=== PATIENT | female | born 1955 | race Caucasian/White ===

== ENCOUNTER 2018-05-23 18:45 | Emergency (ER) | payer MEDICAID ==
[~2018-05-23] VITALS: Ht 172.7 cm; Wt 109.1 kg
[~2018-05-23 18:45] MED LIST: ALB0.5UD IH; ALBU18HF2 IH; BUPR150T6 PO; CLON-529 PO; GLIP5TAB26 PO; HYDR-3965 PO; LORA1TAB PO; METF500T7 PO; NITR0.4T51 SL; OMEP40CA37 PO; PRAV40TA PO; SYN0.112T PO; ZIPR20CA2 PO; ZOLP10TA5 PO
[2018-05-23 21:43] LABS: BASOPHILS # (AUTO) 0.1 X10'3 (0-0.2); BASOPHILS % (AUTO) 1.3 % (0-1); EOSINOPHILS # (AUTO) 0.7 X10'3 (0-0.9); EOSINOPHILS % (AUTO) 6.3 % (0-6); HEMATOCRIT 32.7 % (35.0-45.0); HEMOGLOBIN 10.2 g/dl (12.0-16.0); LYMPHOCYTES # (AUTO) 2.9 X10'3 (1.1-4.8); LYMPHOCYTES % (AUTO) 27.1 % (21-51); MEAN CORPUSCULAR HGB CONC 31.3 g/dL (33.0-36.5); MEAN CORPUSCULAR VOLUME 73.6 FL (78-98); MONOCYTES # (AUTO) 1.1 X10'3 (0-0.9); MONOCYTES % (AUTO) 10.4 % (2-12); NEUTROPHILS # (AUTO) 5.9 X10'3 (1.8-7.7); NEUTROPHILS % (AUTO) 54.9 % (42-75); PLATELET COUNT 421 X10'3 (140-440); RED BLOOD COUNT 4.45 X10'6 (4.20-5.60); RED CELL DISTRIBUTION WIDTH 18.3 % (11.5-14.5); WHITE BLOOD COUNT 10.8 X10'3 (4.5-11.0)
[2018-05-23 21:59] LABS: ALANINE AMINOTRANSFERASE 20 U/L (12-78); ALKALINE PHOSPHATASE 83 IU/L (46-116); ANION GAP 9 (8-16); ASPARTATE AMINO TRANSFERASE 15 U/L (10-37); BILIRUBIN,TOTAL 0.2 MG/DL (0.1-1.0); BLOOD UREA NITROGEN 20 MG/DL (7-18); BUN/CREATININE RATIO 17.9 (6.6-38.0); CHLORIDE 100 MMOL/L (99-107); CREATININE 1.12 MG/DL (0.40-0.90); GLUCOSE 206 MG/DL (70-104); POTASSIUM 3.9 MMOL/L (3.5-5.1); SODIUM 136 MMOL/L (135-145); TOTAL CARBON DIOXIDE 26.9 MMOL/L (24-32); TOTAL PROTEIN 8.1 G/DL (6.4-8.2); eGFR 49 ML/MIN
[2018-05-23 22:08] LABS: ETHANOL < 0.010 GM/DL (0.0-0.010)
[2018-05-23 22:15] LABS: CLARITY,URINE CLEAR (Clear); COLOR,URINE YELLOW (Yellow); GLUCOSE, URINE >=1000 mg/dl (Neg); KETONES,URINE NEGATIVE (Neg); LEUKOCYTE ESTERASE ,URINE NEGATIVE (Neg); NITRITES, URINE NEGATIVE (Neg); OCCULT BLOOD,URINE NEGATIVE (Neg); PH,URINE 5.5 (4.8-8.0); PROTEIN,URINE NEGATIVE (Neg); UA COLLECTION TYPE CLN CATCH MIDSTREAM; URINE HCG NEGATIVE (NEG); UROBILINOGEN,URINE 0.2 E.U/dL (0.2-1.0)
[2018-05-23 22:23] LABS: RBC,URINE 0-2 /HPF (0-2)
[2018-05-23 22:24] LABS: BACTERIA,URINE FEW /HPF (Neg); SQUAMOUS EPITHELIAL CELL,UR FEW /LPF (FEW); WBC CLUMPS,URINE FEW /HPF (NEGATIVE)
[2018-05-23 22:25] LABS: YEAST FEW /HPF (NEGATIVE)
[2018-05-23 22:27] LABS: URINE AMPHETAMINE SCREEN NEGATIVE (Neg); URINE BARBITUATE SCREEN NEGATIVE (Neg); URINE BENZODIAZEPINES SCREEN NEGATIVE (Neg); URINE CANNABINOID SCREEN NEGATIVE (Neg); URINE COCAINE SCREEN NEGATIVE (Neg); URINE METHADONE SCREEN NEGATIVE (Neg); URINE OPIATE SCREEN POSITIVE (Neg); URINE PHENCYCLIDINE SCREEN NEGATIVE (Neg)
--- NOTE | 2018-05-24 01:03 | NUR ---
PT SITTING ON THE SIDE OF BED. ASKED PT IF SHE NEEDED ANYTHING.NO NEEDS AT THIS TIME.
--- NOTE | 2018-05-24 01:57 | NUR ---
tele psych called for consult. pt given blanket
[2018-05-24] MEDS ORDERED: EMPA10TA PO (04:04)
[2018-05-24] MEDS ORDERED: CLON-529 PO (04:04)
[2018-05-24] MEDS ORDERED: LISI-642 PO (04:08)
[2018-05-24] MEDS ORDERED: OLAN5TAB3 PO (04:08)
[2018-05-24] MEDS ORDERED: LORA-512 PO (04:15)
[2018-05-24] MEDS ORDERED: CARV-50 (04:30)
[2018-05-24 05:24] VITALS: BP_DIAS 46
--- NOTE | 2018-05-24 06:01 | NUR ---
SOC MD CALLING FOR REPORT. SHE WILL CALL PT SHORTLY
--- NOTE | 2018-05-24 06:35 | NUR ---
Patient just finished Telepsych consult and moved from Bed 7 to Bed 20 in ED Overflow.
[2018-05-24] MEDS ORDERED: LORazepam 1 MG tablet PO PRN (08:20)
[2018-05-24] MEDS ORDERED: nitroGLYCERIN 0.4mg SUBLingual tab SL PRN (08:20)
[2018-05-24] MEDS ORDERED: HYDROcodone/acetaminophen 5mg/325mg tablet PO PRN (08:20)
[2018-05-24] MEDS ORDERED: buPROPion 75mg tablet PO SCH (08:23)
[2018-05-24] MEDS ORDERED: cloNIDine 0.1 mg tablet PO SCH (08:24)
[2018-05-24] MEDS ORDERED: carVEDilol 12.5mg tablet PO SCH (08:24)
[2018-05-24] MEDS ORDERED: lisinopril 10 MG tablet PO SCH (08:29)
[2018-05-24] MEDS ORDERED: levoTHYROXINE 112mcg tablet PO SCH (08:29)
[2018-05-24] MEDS ORDERED: pantoprazole 40mg Tablet.DR PO SCH (08:33)
[2018-05-24] MEDS: albuterol 2.5 MG/3 ML nebule NEB SCH ×2 (08:35→15:54)
--- NOTE | 2018-05-24 08:40 | NUR ---
Patient awake, alert and no apparent distress. Patient's skin is warm and dry, color pink. Patient c/o feeling suicidal for a long time. Patient does not have a plan. Patient has a lot of stressors in her life. Patient's son is in pallative care and dying from heart disease. Patient's 2 best friends have this year and patient feels overwhelmed with sadness. Patient states she has always been a cutter to relieve stress. Patient has depressed affect. Patient is pending [facility] evaluation. Continue to monitor.
[2018-05-24] MEDS ORDERED: loratadine 10mg tablet PO SCH (09:20)
[2018-05-24 10:36] VITALS: BP_SYST 106
--- NOTE | 2018-05-24 11:26 | NUR ---
Patient placed on a 5150 by LISA Alvares. Continue to monitor.
[2018-05-24] MEDS ORDERED: EMPAGLIFLOZIN 10 MG PO SCH (12:00)
--- NOTE | 2018-05-24 13:18 | NUR ---
RELIEVING RN FOR LUNCH, PT IS SLEEPING, RESP EVEN AND UNLABORED
--- NOTE | 2018-05-24 14:46 | NUR ---
Patient sleeping on right side. No distress observed. Patient's daughter visited earlier for a short time. Continue to monitor.
--- NOTE | 2018-05-24 16:35 | NUR ---
Patient ambulatory to BR, steady gait with [facility] walker. Patient states she lives in a very small apartment and doesn't walk very much. Patient does not use a walker at home. Continue to monitor.
--- NOTE | 2018-05-24 17:32 | NUR ---
Patient is pending d/c and transfer to [facility], [facility]. Per director diversity Leah, pt's room is still dirty so possibly transfer after change of shift. Continue to monitor.
--- NOTE | 2018-05-24 18:35 | NUR ---
Recieved pt report from Medina Mari. Pt is resting comfortably, just recieved and is eating dinner.
--- NOTE | 2018-05-24 19:07 | NUR ---
Patient departed at 1902 with aide Rubin and security. All belongings whent with pt to [facility]. She was transported in a wheelchair. Pt was comfortable and calm at time of departure.
[2018-05-24] MEDS ORDERED: OLANZAPINE 5 MG TABLET PO SCH (21:00)
[2018-05-24] MEDS ORDERED: pravastatin 40mg tablet PO SCH (21:00)
[2018-05-24] MEDS ORDERED: ziprasidone 20mg capsule PO SCH (21:00)
== END 2018-05-24 19:02 | disposition home or self-care (01) ==
LOC: ER 18:46
DX: F41.9 Anxiety disorder, unspecified (principal); F32.9 Major depressive disorder, single episode, unspecified; Z60.2 Problems related to living alone; Z88.5 Allergy status to narcotic agent; Z79.899 Other long term (current) drug therapy
CPT/HCPCS: 36415; 80053; 80305; 80320; 81001; 81025; 84443; 85025; 94640; 94760; 99285

== ENCOUNTER 2018-05-24 16:19 | Inpatient (IN) | payer MEDICAID ==
[~2018-05-24] VITALS: Ht 172.7 cm; Wt 104.2 kg
[~2018-05-24 16:19] MED LIST changes: +CARV-50; +EMPA10TA PO; +LISI-642 PO; +LORA-512 PO; +OLAN5TAB3 PO
[2018-05-24] MEDS ORDERED: mag hydrox/Alum hydrox/simeth 30ml oral suspension PO PRN (17:15)
[2018-05-24] MEDS ORDERED: magnesium hydroxide 30ml (MOM) UD suspension PO PRN (17:15)
[2018-05-24] MEDS ORDERED: tuberculin, purif. prot. deriv. 5 units/0.1ml ID ONE (17:15)
[2018-05-24] MEDS ORDERED: loperamide 2mg capsule PO PRN (17:15)
[2018-05-24 20:00] VITALS: BP 117/55
[2018-05-24] MEDS ORDERED: nitroGLYCERIN 0.4mg SUBLingual tab SL PRN (20:55)
[2018-05-24] MEDS ORDERED: OLANZAPINE 5 MG TABLET PO SCH (21:00)
[2018-05-24] MEDS ORDERED: albuterol 2.5 MG/3 ML nebule NEB PRN (21:00)
[2018-05-24] MEDS ORDERED: dextrose ORAL solution 15 GM/59 ML bottle PO PRN ×2 (22:30)
[2018-05-24] MEDS ORDERED: glucagon, human recombinant 1mg kit SUBCUT PRN (22:30)
[2018-05-24] MEDS ORDERED: dextrose 50%-water 50ml dispensing syringe IV PRN ×2 (22:30)
[2018-05-24] MEDS ORDERED: MESSAGE TO PHARMACY PO ONE (22:30)
[2018-05-24] MEDS: insulin glargine (Lantus) pen - multi-dose SQ SCH (23:25)
[2018-05-24] MEDS: ziprasidone 20mg capsule PO SCH (23:49)
[2018-05-24] MEDS: LORazepam 1 MG tablet PO PRN (23:50)
[2018-05-24] MEDS: OLANZAPINE 5 MG TABLET PO SCH (23:52)
--- NOTE | 2018-05-25 05:01 | NUR ---
NURSING PROGRESS NOTE Legal hold: 5150 for DTS. Report received from: Francis kowalski. 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 Client has a hx of self injurious behavior (i.e. "I was a cutter when I was a teenager.") Client reported SI with the intention of "running in front of a car". She reported one prior SA, stating, "I took a whole bottle of Seroquel, and God saved my life". This attempt did not result in hospitalization. Client was adopted as an . Client arrived on the unit at 19:00 from the ED, via wheelchair accompanied by Rubin Pizano. She is cooperative and pleasant. Client requests a walker. Her gait has not been assessed at this time. She appears older than stated age, is disheveled, and has poor personal hygiene. Medical hx is significant for: DM II, HTN, hyperlipidemia, hypothyroidism, COPD, and GERD. S/I, H/I: Reports SI. A/VH: Denies. Sleep: Reports insomnia. ADL's: Independent Group attendance: N/A. Were meds taken: Med compliant. Any med S/E: None noted or reported. MENTAL HEALTH ASSESSMENT: Appearance: Messy hair, disheveled, poor hygiene. Eye contact: Good. Behavior: Cooperative. Speech: Clear. Mood: Depressed. Affect: Blunted. Thought process: Linear. Cognition: A&Ox4. Insight: Fair. Judgment: Poor. INTERVENTIONS: PRN's used: N/A. Therapeutic interventions: 1:1 assessment, positive feedback medication administration/monitoring/education, Q 15 min safety checks. Restraints/seclusion/emergency medication: N/A Justification of Continued Inpatient Treatment: Client is depressed and reports impulsive self injurious behaviors. She has been endorsing SI at this time.
[2018-05-25 07:41] VITALS: BP 106/40
[2018-05-25] MEDS: lisinopril 5mg tablet PO SCH (07:51)
[2018-05-25] MEDS: carVEDilol 12.5mg tablet PO SCH ×2 (07:51→20:39)
[2018-05-25] MEDS: levoTHYROXINE 112mcg tablet PO SCH (07:52)
[2018-05-25] MEDS: pantoprazole 40mg Tablet.DR PO SCH (07:52)
[2018-05-25] MEDS: loratadine 10mg tablet PO SCH (07:52)
[2018-05-25] MEDS: pravastatin 40mg tablet PO SCH (07:52)
[2018-05-25] MEDS: buPROPion SR 150mg tablet PO SCH (07:52)
[2018-05-25] MEDS ORDERED: glipizide 5mg tablet PO SCH (08:00)
[2018-05-25] MEDS: cloNIDine 0.1 mg tablet PO SCH ×2 (08:00→20:39)
--- NOTE | 2018-05-25 12:03 | NUR ---
"1:1 DISCHARGE PLANNING SW emailed Tiffany Hughes with the following for Journey Home Program: Good Afternoon Mama July, I am hoping we can connect with each other for Journey Home ticket and possible substance abuse treatment program in [place] for patient whom has been at our facility for a few days. From what I understand, he came to [place] to get clean and sober, then began using methamphetamine. He presents as very depressed and desires to return to the area where he as family and friend supports. Can you help us connect this gentleman to return home? Thank you, LIZZETTE Beckford | [employer] Visiting Teacher II LIZZETTE Beckford Addendum: 05/28/18 at 0709 by Shanelle Osman AMENDED NOTE NOTE PLACED IN WRONG CHART. DISREGARD THIS NOTE. LIZZETTE Beckford"
--- NOTE | 2018-05-25 16:47 | NUR ---
NURSING PROGRESS NOTE Legal hold: 5150 for DTS. Report received from HELLEN Velasquez with use of SBAR. Why they are here: Client presented to ED reporting wanting to "punch herself in the head". There is HX of self injurious behavior (i.e. "I was a cutter when I was a teenager.") Patient reported SI with the intention of "running in front of a car". This shift: Patient is observed resting in her room at shift change, no apparent distress observed. She awakens easily and takes her morning medications. She states that she is feeling a little nauseous this morning but gets up and joins others in the group room for breakfast. She eats her meals without any issue. She attends groups and in between activities she rests in her bed. She tells this RN that she has been having difficulty sleeping for the past 3 months. She states that this is probably why she does not feel well. She does not report S/I but does states that she thinks about cutting all the time. ASSESSMENT: S/I, H/I: none reported, reports wanting to cut herself A/VH: Denies. Sleep: slept 5.25 hrs NOC and rested during the night ADL's: Independent Group attendance: yes Were meds taken: yes Any med S/E: None noted or reported. MENTAL HEALTH ASSESSMENT: Appearance: Messy hair, disheveled, poor hygiene. Eye contact: direct Behavior: Cooperative, calm, tired Speech: Clear, soft tone, normal rate/rhythm Mood: Depressed Affect: restricted with soft occasional smiles Thought process: Linear. Cognition: A&Ox4. Insight: Fair. Judgment: Poor. INTERVENTIONS: PRN's used: none Therapeutic interventions: 1:1 therapeutic assessment, maintained safe therapeutic milieu, provided active listening with positive feedback, provided medication education as needed, monitored for change in behavior and needed intervention. Q 15 min safety checks. Restraints/seclusion/emergency medication: N/A Justification of Continued Inpatient Treatment: Client is depressed and reports impulsive self injurious behaviors. She has been endorsing SI at this time.Continued therapeutic support and medication management needed to provide stabilization, prevent decompensation, and decrease risk to patient and readmittance.
[2018-05-25 19:39] VITALS: BP 115/47
[2018-05-25] MEDS: ziprasidone 20mg capsule PO SCH (20:38)
[2018-05-25] MEDS: insulin glargine (Lantus) pen - multi-dose SQ SCH ×2 (20:47→21:00)
[2018-05-25] MEDS: LORazepam 1 MG tablet PO PRN (21:06)
[2018-05-25] MEDS: OLANZAPINE 5 MG TABLET PO SCH (21:06)
--- NOTE | 2018-05-26 01:38 | NUR ---
NURSING PROGRESS NOTE Legal hold: 5150 for DTS. Report received from PHILIP Timmons with use of SBAR. Why they are here: Client presented to ED reporting wanting to "punch herself in the head". There is HX of self injurious behavior (i.e. "I was a cutter when I was a teenager.") Patient reported SI with the intention of "running in front of a car". This shift: Patient was resting in bed at shift change, pt aroused easily. Pt is pleasant and reports she had a good day. Pt stated she attended group. Pt stated she was provided a FWW. She is able to walk from her room to the group room, across the [place], for meals and group therapy. P.T eval is still pending. Pt reports she her anxiety a 10/23 and depression 09/21. Pt denies SI, but reports she still thinks about cutting herself. Pt has a history of cutting, but nothing recent. Pt denies A/VH, states she is happy she is here. Blood glucose was 201 at 2130. Pt received 12 units of routine Lantus. Pt was administered her PPD this shift with no adverse side effects noted. ASSESSMENT: S/I, H/I: SI pt denies, reports wanting to cut herself. [place] H/I A/VH: None reported or observed Sleep: See sleep assessment notation ADL's: Independent, needs prompting for hygiene Group attendance: shift boss, no group Were meds taken: Pt is medication compliant Any med S/E: None reported or observed MENTAL HEALTH ASSESSMENT: Appearance: Messy hair, disheveled, poor hygiene. Eye contact: Direct Behavior: Cooperative, calm, fatigued Speech: Clear, soft tone, normal rate/rhythm Mood: Depressed Affect: Restricted with soft occasional smiles Thought process: Linear Cognition: A&Ox4. Insight: Fair. Judgment: Poor. INTERVENTIONS: PRN's used: Ativan Therapeutic interventions: 1:1 therapeutic assessment, maintained safe therapeutic milieu, provided active listening with positive feedback, provided medication education as needed, monitored for change in behavior and needed intervention. Q 15 min safety checks. Restraints/seclusion/emergency medication: N/A Justification of Continued Inpatient Treatment: Client is depressed and reports impulsive self injurious behaviors. She has been endorsing SI at this time.Continued therapeutic support and medication management needed to provide stabilization, prevent decompensation, and decrease risk to patient and readmittance.
[2018-05-26] MEDS: pantoprazole 40mg Tablet.DR PO SCH (07:36)
[2018-05-26 07:37] VITALS: BP 101/45
[2018-05-26] MEDS: cloNIDine 0.1 mg tablet PO SCH ×2 (08:00→20:00)
[2018-05-26 08:18] VITALS: BP 101/62
[2018-05-26] MEDS: carVEDilol 12.5mg tablet PO SCH ×2 (08:22→20:00)
[2018-05-26] MEDS: lisinopril 5mg tablet PO SCH (08:22)
[2018-05-26] MEDS: loratadine 10mg tablet PO SCH (08:22)
[2018-05-26] MEDS: levoTHYROXINE 112mcg tablet PO SCH (08:22)
[2018-05-26] MEDS: pravastatin 40mg tablet PO SCH (08:22)
[2018-05-26] MEDS: buPROPion SR 150mg tablet PO SCH (08:22)
[2018-05-26] MEDS: insulin Lispro (HumaLOG) vial - multi-dose SQ SCH ×3 (08:49→18:20)
[2018-05-26 09:00] LABS: HEMOGLOBIN A1C 8.7 % (4.5-6.2)
[2018-05-26 09:01] LABS: CHOL/HDL RATIO 5.3 (0.00-4.99); CHOLESTEROL 184 MG/DL (0-200); HDL CHOLESTEROL 35 MG/DL (35-60); LDL CHOLESTEROL 107 MG/DL (50-100); TRIGLYCERIDES 308 MG/DL (20-135)
--- NOTE | 2018-05-26 11:49 | NUR ---
NURSING PROGRESS NOTE Legal hold: 5150 for DTS. Report received from PHILIP Salas with use of SBAR. Why they are here: Client presented to ED reporting wanting to "punch herself in the head". There is HX of self injurious behavior (i.e. "I was a cutter when I was a teenager.") Patient reported SI with the intention of "running in front of a car". This shift: Pt was sitting on the edge of her bed at change of shift. Compliant with medication administration. States she is depressed and anxious, but denies SI. Denies A/VH. She reports pain 6/10 in her back and shoulders, but refuses pain medication. Reports rest and relaxation help pain. Pt attended AM group. 0731 blood sugar 187, pt started on level II of hyperglycemic protocol. Pt's BP 101/62, Catapress held, Rolo Mathur notified. ASSESSMENT: S/I, H/I: Denies A/VH: Denies. Sleep: Napped ADL's: Independent Group attendance: AM group Were meds taken: yes Any med S/E: None noted or reported. MENTAL HEALTH ASSESSMENT: Appearance: Disheveled Eye contact: Direct Behavior: Pleasant, cooperative Speech: Normal rate/rhythm Mood: Depressed Affect: Constricted Thought process: Linear and connected Cognition: A&Ox4. Insight: Fair. Judgment: Fair INTERVENTIONS: PRN's used: None Therapeutic interventions: 1:1 therapeutic assessment, maintained safe therapeutic milieu, provided active listening with positive feedback, provided medication education and monitoring, assessed for changes in behavior and needed interventions. Q 15 min safety checks, therapeutic milieu Restraints/seclusion/emergency medication: N/A Justification of Continued Inpatient Treatment: Continued therapeutic support and medication management needed to provide stabilization, prevent decompensation, and decrease risk to patient and readmittance.
[2018-05-26] MEDS: nystatin 15 GM powder TP SCH ×2 (12:54→20:48)
--- NOTE | 2018-05-26 12:58 | NUR ---
Amend: Pt reluctantly allowed assessment of area under pannus. Area is not red at this time, Nystatin held.
[2018-05-26] MEDS: LORazepam 0.5 MG tablet PO PRN ×2 (13:30→21:39)
[2018-05-26] MEDS: acetaminophen 325mg tablet PO PRN (16:44)
[2018-05-26 20:00] VITALS: BP 95/58
[2018-05-26] MEDS: OLANZAPINE 5 MG TABLET PO SCH (20:43)
[2018-05-26] MEDS: insulin glargine (Lantus) pen - multi-dose SQ SCH (20:46)
[2018-05-26] MEDS: ziprasidone 20mg capsule PO SCH (21:40)
[2018-05-26] MEDS ORDERED: LORazepam 0.5 MG tablet PO ONE (23:50)
--- NOTE | 2018-05-27 01:27 | NUR ---
NURSING PROGRESS NOTE Legal hold: 5150 for DTS. Report received from HPILIP Hdez with use of SBAR. Why they are here: Client presented to ED reporting wanting to "punch herself in the head". There is HX of self injurious behavior (i.e. "I was a cutter when I was a teenager.") Patient reported SI with the intention of "running in front of a car". This shift: Patient was lying in bed at shift change. No apparent distress observed. Pt was compliant with medication administration. Her Coreg and Clonidine were held due to SBP below parameters. Pt reports her anxiety and depression to be 9/10. Pt does not appear to be anxious, she smiles and converses appropriately. Her affect is not congruent with her mood. Pt denies SI, A/VH, she reports passive thoughts of cutting herself, but these thoughts have greatly diminished. Pt feels her depression is not being addressed and asked what medications she was on. Pt was upset because her Ativan had been reduced to 0.5 mg BID, stated she probably wouldn't be able to sleep know. Pt HS blood glucose was 151. Pt received 12 units scheduled Lantus. Pt was offered to take a shower, but pt refused and indicated she would take one in the morning. It was explained the risks and benefits of keeping the skin under her pannus clean and dry. Pt woke up and said she was unable to sleep due to racing thoughts. Dr. Abdul was called and a 1x dose of Ativan 0.5mg was given. ASSESSMENT: S/I, H/I: None reported or observed. Passive thoughts on cutting self A/VH: None reported or observed Sleep: See sleep assessment notation ADL's: Independent, needs prompting for hygiene Group attendance: retail shift leader, no group Were meds taken: Pt was medication compliant; Coreg and Clonidine were held (SBP below parameters) Any med S/E: None reported or observed MENTAL HEALTH ASSESSMENT: Appearance: Messy hair, disheveled, poor hygiene. Eye contact: Direct Behavior: Cooperative, calm, Speech: Clear, soft tone, normal rate/rhythm Mood: Depressed, anxious Affect: Not congruent with mood Thought process: Linear Cognition: A&Ox4. Insight: Fair. Judgment: Fair INTERVENTIONS: PRN's used: Ativan Therapeutic interventions: 1:1 therapeutic assessment, maintained safe therapeutic milieu, provided active listening with positive feedback, provided medication education as needed, monitored for change in behavior and needed intervention. Q 15 min safety checks. Restraints/seclusion/emergency medication: N/A Justification of Continued Inpatient Treatment: Continued therapeutic support and medication management needed to provide stabilization, prevent decompensation, and decrease risk to patient and readmittance.
[2018-05-27] MEDS: acetaminophen 325mg tablet PO PRN ×5 (05:24→14:55)
[2018-05-27 07:52] VITALS: BP 99/69
[2018-05-27] MEDS: carVEDilol 12.5mg tablet PO SCH ×2 (08:00→20:55)
[2018-05-27] MEDS: cloNIDine 0.1 mg tablet PO SCH ×2 (08:27→20:56)
[2018-05-27] MEDS: pantoprazole 40mg Tablet.DR PO SCH (08:27)
[2018-05-27] MEDS: loratadine 10mg tablet PO SCH (08:28)
[2018-05-27] MEDS: buPROPion SR 150mg tablet PO SCH (08:28)
[2018-05-27] MEDS: levoTHYROXINE 112mcg tablet PO SCH (08:28)
[2018-05-27] MEDS: pravastatin 40mg tablet PO SCH (08:28)
[2018-05-27] MEDS: lisinopril 5mg tablet PO SCH (08:31)
[2018-05-27] MEDS: insulin Lispro (HumaLOG) vial - multi-dose SQ SCH ×3 (09:06→18:26)
[2018-05-27] MEDS: nystatin 15 GM powder TP SCH ×3 (09:08→21:17)
--- NOTE | 2018-05-27 10:36 | NUR ---
DM Consult: A1C 8.7. Pt admit on 5150 hold w/ SI and depression. TG 308. Not appropriate for DM/heart healthy eds at this time. PO 100% carb controlled meals meeting needs. LBM 05/25. Will continue to monitor. Rec: 1. advance to heart healthy/carb controlled diet 2. wt per rx Addendum: 05/27/18 at [address] Amended: Links added.
--- NOTE | 2018-05-27 15:40 | NUR ---
NURSING PROGRESS NOTE Legal hold: Voluntary Report received from PHILIP Salas with use of SBAR. Why they are here: Client presented to ED reporting wanting to "punch herself in the head". There is HX of self injurious behavior (i.e. "I was a cutter when I was a teenager.") Patient reported SI with the intention of "running in front of a car". What happened this shift: Pt appears to be sleeping at start of shift, eyes closed on left side RR even and unlabored. 1:1 assessment at bedside. Pt reports chronic back pain. Denies SI endorses depression w/anxiety. ASSESSMENT: S/I, H/I: Denies A/VH: Denies. Sleep: Napped ADL's: Independent Group attendance: AM group Were meds taken: Yes Any med S/E: None noted or reported. MENTAL HEALTH ASSESSMENT: Appearance: Showered Eye contact: Direct Behavior: Pleasant, cooperative Speech: Normal rate/rhythm Mood: Depressed Affect: Constricted Thought process: Linear Cognition: A&Ox4. Insight: Fair. Judgment: Fair INTERVENTIONS: PRN's used: Tylenol (chronic back pain). Therapeutic interventions: 1:1 therapeutic communication and listening, administered medicine w/education and monitored for side effects, encouraged attention to ADL's, Q 15 min monitoring for safety check. Restraints/seclusion/emergency medication: N/A Justification of Continued Inpatient Treatment: Continued therapeutic support and medication management needed to provide stabilization, prevent decompensation, and decrease risk to patient and readmittance to in-patient unit.
[2018-05-27] MEDS: LORazepam 0.5 MG tablet PO PRN ×2 (16:08→21:10)
[2018-05-27 19:27] VITALS: BP 116/66
[2018-05-27] MEDS: ziprasidone 20mg capsule PO SCH (20:55)
[2018-05-27] MEDS: OLANZAPINE 5 MG TABLET PO SCH (20:56)
[2018-05-27] MEDS: insulin glargine (Lantus) pen - multi-dose SQ SCH (21:01)
[2018-05-27] MEDS: traZODone 50mg tablet PO PRN ×2 (21:10→21:59)
[2018-05-27] MEDS: hydrOXYzine 25 MG tablet PO PRN (22:46)
[2018-05-27] MEDS ORDERED: traZODone 50mg tablet PO ONE (23:55)
[2018-05-28] MEDS ORDERED: traZODone 50mg tablet PO SCH (01:25)
[2018-05-28] MEDS: acetaminophen 325mg tablet PO PRN ×2 (01:31→13:42)
--- NOTE | 2018-05-28 02:35 | NUR ---
NURSING PROGRESS NOTE Legal hold: Voluntary Report received from PHILIP Shine with use of SBAR. Why they are here: Client presented to ED reporting wanting to "punch herself in the head". There is HX of self injurious behavior (i.e. "I was a cutter when I was a teenager.") Patient reported SI with the intention of "running in front of a car". What happened this shift: Pt pleasant and cooperative. Affect bright. Denies SI or hallucinations. Pt reports chronic back pain. Pt was unable to get to sleep tonight. All available PRNs given. Dr. Carcamo called he ordered 50 mg Trazodone may repeat x1. Pt asleep at this time. ASSESSMENT: S/I, H/I: Denies A/VH: Denies. Sleep: Napped ADL's: Independent Group attendance: Group room for snack. Were meds taken: Yes Any med S/E: None noted or reported. MENTAL HEALTH ASSESSMENT: Appearance: Showered Eye contact: Direct Behavior: Pleasant, cooperative Speech: Normal rate/rhythm Mood: Depressed Affect: Constricted Thought process: Linear Cognition: A&Ox4. Insight: Fair. Judgment: Fair INTERVENTIONS: PRN's used: Tylenol (chronic back pain). Sleep Trazodone 200mg Ativan 0.5mg Atarax 50mg. Therapeutic interventions: 1:1 therapeutic communication and listening, administered medicine w/education and monitored for side effects, encouraged attention to ADL's, Q 15 min monitoring for safety check. Restraints/seclusion/emergency medication: N/A Justification of Continued Inpatient Treatment: Continued therapeutic support and medication management needed to provide stabilization, prevent decompensation, and decrease risk to patient and readmittance to in-patient unit.
[2018-05-28 07:38] VITALS: BP 126/60
[2018-05-28] MEDS: lisinopril 5mg tablet PO SCH (07:51)
[2018-05-28] MEDS: carVEDilol 12.5mg tablet PO SCH ×2 (07:51→19:58)
[2018-05-28] MEDS: pantoprazole 40mg Tablet.DR PO SCH (07:51)
[2018-05-28] MEDS: levoTHYROXINE 112mcg tablet PO SCH (07:51)
[2018-05-28] MEDS: pravastatin 40mg tablet PO SCH (07:51)
[2018-05-28] MEDS: loratadine 10mg tablet PO SCH (07:51)
[2018-05-28] MEDS: buPROPion SR 150mg tablet PO SCH (07:51)
[2018-05-28] MEDS: cloNIDine 0.1 mg tablet PO SCH ×2 (07:53→19:58)
[2018-05-28] MEDS: nystatin 15 GM powder TP SCH ×3 (07:54→20:46)
[2018-05-28] MEDS: insulin Lispro (HumaLOG) vial - multi-dose SQ SCH ×3 (08:41→18:35)
--- NOTE | 2018-05-28 12:52 | NUR ---
NURSING PROGRESS NOTE Legal hold: Voluntary Report received from PHILIP Reed with use of SBAR. Why they are here: Client presented to ED reporting wanting to "punch herself in the head". There is HX of self injurious behavior (i.e. "I was a cutter when I was a teenager.") Patient reported SI with the intention of "running in front of a car". What happened this shift: Pt in bed sleeping at start of shift. 1:1 assessment provided at bedside. Pt reports she could not sleep last night and "nothing I was given helped." She states, "I feel like I am hung over." So, consequently pt stayed in bed most of the day. ASSESSMENT: S/I, H/I: Denies A/VH: Denies. Sleep: Napped throughout the day ADL's: Independent Group attendance: Get up for snacks. Were Meds taken: Yes Any med S/E: None noted or reported. MENTAL HEALTH ASSESSMENT: Appearance: Showered Eye contact: Direct Behavior: Pleasant, cooperative Speech: Normal rate/rhythm Mood: Depressed Affect: Constricted Thought process: Linear Cognition: A&Ox4. Insight: Fair. Judgment: Fair INTERVENTIONS: PRN's used: Tylenol (chronic back pain). Sleep Trazodone 200mg Ativan 0.5mg Atarax 50mg. Therapeutic interventions: 1:1 therapeutic communication and listening, administered medicine w/education and monitored for side effects, encouraged attention to ADL's, Q 15 min monitoring for safety check. Restraints/seclusion/emergency medication: N/A Justification of Continued Inpatient Treatment: Continued therapeutic support and medication management needed to provide stabilization, prevent decompensation, and decrease risk to patient and readmittance to in-patient unit.
[2018-05-28] MEDS: hydrOXYzine 25 MG tablet PO PRN (20:01)
[2018-05-28] MEDS: OLANZAPINE 5 MG TABLET PO SCH (20:38)
[2018-05-28] MEDS: ziprasidone 20mg capsule PO SCH (20:38)
[2018-05-28] MEDS ORDERED: traZODone 50mg tablet PO PRN (20:40)
[2018-05-28] MEDS: insulin glargine (Lantus) pen - multi-dose SQ SCH (20:45)
--- NOTE | 2018-05-28 23:25 | NUR ---
NURSING PROGRESS NOTE Legal hold: Voluntary Report received from PHILIP Modi with use of SBAR. Why they are here: Client presented to ED reporting wanting to "punch herself in the head". There is HX of self injurious behavior (i.e. "I was a cutter when I was a teenager.") Patient reported SI with the intention of "running in front of a car". What happened this shift: Pt in bed resting at change of shift. Pt only got up for group snack then readied self for bed where she read, listened to music, then went to sleep. Pt reported being depressed and anxious, and stated she did not want Trazadone quite so late since she ended up "needing to nap a lot during the day". Pt attributed anxiety to losing her mother and two best friends within the same year plus her son being diagnosed with an illness. She stated she needs to learn coping skills so that she can better manage her symptoms. ASSESSMENT: S/I, H/I: Denies A/VH: Denies Sleep: See Charting ADL's: Independent, weak Group attendance: Y - HS snack Were Meds taken: Y Any med S/E: None noted or reported MENTAL HEALTH ASSESSMENT: Appearance: Clean, wearing personal clothing, appropriate attire Eye contact: Direct Behavior: Pleasant, cooperative Speech: Normal rate/rhythm Mood: Depressed Affect: Blunted Thought process: Linear Cognition: A&Ox4 Insight: Fair Judgment: Fair INTERVENTIONS: PRN's used: Atarax 50 mg for anxiety, Trazadone 100 mg for sleep Therapeutic interventions: 1:1 therapeutic communication and listening, administered medicine w/education and monitored for side effects, encouraged attention to ADL's, Q 15 min monitoring for safety check. Restraints/seclusion/emergency medication: N/A Justification of Continued Inpatient Treatment: Continued therapeutic support and medication management needed to provide stabilization, prevent decompensation, and decrease risk to patient and readmittance to in-patient unit.
[2018-05-28 23:34] VITALS: BP 101/48
--- NOTE | 2018-05-28 23:36 | NUR ---
BPs: Supine - 89/38, HR 70 Sit - 95/47, HR 80 Stand - 101/48, HR 95 Pt c/o dizziness intermittently with position changes. States she fatigues easily. Addendum: 05/28/18 at 2352 by Anny Chua RN Manual Cuff - Supine: 101/58, HR 75
[2018-05-29] MEDS: acetaminophen 325mg tablet PO PRN ×3 (01:37→20:45)
[2018-05-29] MEDS: pantoprazole 40mg Tablet.DR PO SCH (07:45)
[2018-05-29] MEDS: levoTHYROXINE 112mcg tablet PO SCH (07:45)
[2018-05-29] MEDS: carVEDilol 12.5mg tablet PO SCH ×2 (08:00→19:43)
[2018-05-29] MEDS: cloNIDine 0.1 mg tablet PO SCH ×2 (08:00→19:43)
[2018-05-29 08:15] VITALS: BP 99/48
[2018-05-29 08:24] VITALS: BP 123/62
[2018-05-29] MEDS: insulin Lispro (HumaLOG) vial - multi-dose SQ SCH ×3 (08:45→18:26)
[2018-05-29] MEDS: buPROPion SR 150mg tablet PO SCH (08:46)
[2018-05-29] MEDS: pravastatin 40mg tablet PO SCH (08:46)
[2018-05-29] MEDS: lisinopril 5mg tablet PO SCH (08:46)
[2018-05-29] MEDS: loratadine 10mg tablet PO SCH (08:46)
[2018-05-29] MEDS: nystatin 15 GM powder TP SCH ×3 (09:00→20:47)
--- NOTE | 2018-05-29 14:54 | NUR ---
NURSING PROGRESS NOTE Legal hold: Voluntary Report received from PHILIP Mccormick with use of SBAR. Why they are here: Client presented to ED reporting wanting to "punch herself in the head". There is Hx of self injurious behavior (i.e. "I was a cutter when I was a teenager.") Patient reported SI with the intention of "running in front of a car". Assessment: What happened this shift: Pt in bed sleeping at start of shift. Cooperative with 1:1 assessment. Pt indicated she was a little depressed, but denied anxiety, SI, and A/VH. She indicated she did not sleep well during the night and was up until 0400. She said the Trazadone did not help her sleep. Pt reported 6/10 back pain relieved by Tylenol. Blood glucose monitored and Humalog insulin administered as ordered. Compliant with medication administration. Pt napped during the day and did not go to groups. Pt's BP at 0800 99/48, AM Catapress and Coreg held. At 0825, pt's BP 123/62 Lisinopril administered. Mild redness under pannus, Nystatin applied x1. Tylenol relieved 6/10 back and shoulder pain. S/I, H/I: Denies A/VH: Denies. Sleep: Napped throughout the day ADL's: Independent Group attendance: Did not attend groups. Were Meds taken: Yes Any med S/E: None noted or reported. MENTAL HEALTH ASSESSMENT: Appearance: Clean Eye contact: Good Behavior: Stayed in bed much of the day. Cooperative Speech: Normal rate/rhythm Mood: Depressed Affect: Constricted Thought process: Linear Cognition: A&Ox4. Insight: Fair. Judgment: Fair INTERVENTIONS: PRN's used: Tylenol Therapeutic interventions: Provided 1:1 therapeutic communication and active listening, administered medicine w/education and monitored for side effects, encouraged attention to ADL's, Q 15 min monitoring for safety check, maintained therapeutic milieu. Restraints/seclusion/emergency medication: N/A Justification of Continued Inpatient Treatment: Continued therapeutic support and medication management needed to provide stabilization, prevent decompensation, and decrease risk to patient and readmittance to in-patient unit. Addendum: 05/29/18 at 1751 by uLna Gomez RN Amend: ELSIE Atarax given for anxiety
[2018-05-29] MEDS: hydrOXYzine 25 MG tablet PO PRN (17:24)
[2018-05-29] MEDS: ziprasidone 20mg capsule PO SCH (20:47)
[2018-05-29] MEDS: quetiapine 100mg tablet PO SCH (20:47)
[2018-05-29] MEDS: insulin glargine (Lantus) pen - multi-dose SQ SCH (20:54)
[2018-05-29] MEDS: LORazepam 0.5 MG tablet PO PRN (21:57)
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
[2018-05-29 23:04] VITALS: BP 101/61
[2018-05-30 07:37] VITALS: BP 86/60
[2018-05-30] MEDS: nystatin 15 GM powder TP SCH ×3 (07:47→21:41)
[2018-05-30] MEDS: levoTHYROXINE 112mcg tablet PO SCH (07:47)
[2018-05-30] MEDS: buPROPion SR 150mg tablet PO SCH (07:47)
[2018-05-30] MEDS: pravastatin 40mg tablet PO SCH (07:48)
[2018-05-30] MEDS: pantoprazole 40mg Tablet.DR PO SCH (07:48)
[2018-05-30] MEDS: cloNIDine 0.1 mg tablet PO SCH ×2 (07:49→20:00)
[2018-05-30] MEDS: loratadine 10mg tablet PO SCH (07:49)
[2018-05-30] MEDS: carVEDilol 12.5mg tablet PO SCH ×2 (07:50→20:00)
[2018-05-30] MEDS: lisinopril 5mg tablet PO SCH (07:50)
[2018-05-30] MEDS: insulin Lispro (HumaLOG) vial - multi-dose SQ SCH ×3 (08:51→18:44)
[2018-05-30] MEDS: acetaminophen 325mg tablet PO PRN ×2 (08:56→18:49)
[2018-05-30] MEDS: hydrOXYzine 25 MG tablet PO PRN (13:36)
[2018-05-30] MEDS: LORazepam 0.5 MG tablet PO PRN ×2 (13:41→22:14)
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
[2018-05-30 20:18] VITALS: BP 95/48
[2018-05-30] MEDS: ziprasidone 20mg capsule PO SCH (20:31)
[2018-05-30] MEDS: insulin glargine (Lantus) pen - multi-dose SQ SCH (20:37)
[2018-05-30] MEDS: quetiapine 100mg tablet PO SCH (21:00)
[2018-05-30] MEDS: zolpidem 5mg tablet PO PRN (22:14)
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
[2018-05-31 07:37] VITALS: BP 119/64
[2018-05-31] MEDS: pantoprazole 40mg Tablet.DR PO SCH (07:49)
[2018-05-31] MEDS: carVEDilol 12.5mg tablet PO SCH ×2 (07:49→20:31)
[2018-05-31] MEDS: lisinopril 5mg tablet PO SCH (07:49)
[2018-05-31] MEDS: cloNIDine 0.1 mg tablet PO SCH ×2 (07:49→20:31)
[2018-05-31] MEDS: pravastatin 40mg tablet PO SCH (07:50)
[2018-05-31] MEDS: buPROPion SR 150mg tablet PO SCH (07:50)
[2018-05-31] MEDS: levoTHYROXINE 112mcg tablet PO SCH (07:50)
[2018-05-31] MEDS: loratadine 10mg tablet PO SCH (07:51)
[2018-05-31] MEDS: nystatin 15 GM powder TP SCH ×3 (08:00→21:00)
[2018-05-31] MEDS: insulin Lispro (HumaLOG) vial - multi-dose SQ SCH ×3 (08:53→18:14)
[2018-05-31] MEDS: LORazepam 0.5 MG tablet PO PRN (11:04)
[2018-05-31] MEDS: loperamide 2mg capsule PO PRN ×2 (13:58→21:09)
[2018-05-31] MEDS: acetaminophen 325mg tablet PO PRN (16:36)
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
[2018-05-31 20:09] VITALS: BP 112/45
[2018-05-31] MEDS: quetiapine 100mg tablet PO SCH (20:30)
[2018-05-31] MEDS: zolpidem 5mg tablet PO PRN (20:31)
[2018-05-31] MEDS: ziprasidone 20mg capsule PO SCH (20:31)
[2018-05-31] MEDS: insulin glargine (Lantus) pen - multi-dose SQ SCH (20:36)
[2018-05-31 21:07] VITALS: BP_SYST 105; BP_SYST 110; BP_DIAS 51; BP_DIAS 59
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
[2018-06-01] MEDS: cloNIDine 0.1 mg tablet PO SCH (07:45)
[2018-06-01] MEDS: pantoprazole 40mg Tablet.DR PO SCH (07:46)
[2018-06-01] MEDS: loratadine 10mg tablet PO SCH (07:46)
[2018-06-01] MEDS: carVEDilol 12.5mg tablet PO SCH (07:46)
[2018-06-01] MEDS: levoTHYROXINE 112mcg tablet PO SCH (07:46)
[2018-06-01] MEDS: buPROPion SR 150mg tablet PO SCH (07:46)
[2018-06-01] MEDS: lisinopril 5mg tablet PO SCH (07:47)
[2018-06-01] MEDS: pravastatin 40mg tablet PO SCH (07:47)
[2018-06-01 07:51] VITALS: BP 116/59
[2018-06-01 08:00] VITALS: BP_SYST 108; BP_SYST 116; BP_SYST 99; BP_DIAS 50; BP_DIAS 59; BP_DIAS 67
[2018-06-01] MEDS: nystatin 15 GM powder TP SCH ×2 (08:00→13:00)
[2018-06-01] MEDS ORDERED: LISI-642 PO (08:44)
[2018-06-01] MEDS: loperamide 2mg capsule PO PRN ×2 (08:57→19:30)
[2018-06-01] MEDS: insulin Lispro (HumaLOG) vial - multi-dose SQ SCH ×3 (08:59→18:14)
[2018-06-01] MEDS: acetaminophen 325mg tablet PO PRN ×2 (15:14→19:26)
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
[2018-06-01 19:17] VITALS: BP 100/56
--- NOTE | 2018-06-01 20:15 | NUR ---
Discharge Note: Pt. left the unit at 2014 in w/c accompanied by her grandson and angel Leyva. Belongings inventoried and given to pt. along with medications. Pt. alert and oriented X4, cooperative, pleasant, and anxious to get back home. She will be staying with her daughter for a short time before going back to her own apartment. Pt. has outpatient counseling appointments in place, and she reports she is able to administer her own medications and insulins r/t chronic diabetes. She requests to wait and take her medications tonight when she gets home, this law writer reviewed HS medications with pt., she voiced understanding. PRN Tylenol administered for chronic back pain and Imodium administered for chronic diarrhea with effectiveness. Pt. denies any S/I, reports her mood is good, and she feels her medications are working. Addendum: 06/02/18 at 0102 by Pooja Minor RN Skin assessment completed upon discharge, rash to bilateral pannus appears much improved, no s/s of redness and Nystatin Powder in place. Chronic bruising to left elbow still present. Pictures obtained and placed in pt's chart.
[2018-06-01 20:17] VITALS: BP 104/36
== END 2018-06-01 20:15 | disposition home or self-care (01) | DRG 751 ==
LOC: ADULT MH 16:19
PROVIDERS: ADMIT Psychiatry & Neurology Psychiatry; ATTEND Psychiatry & Neurology Psychiatry
DX: F33.2 Major depressive disorder, recurrent severe without psychotic features (principal); F13.20 Sedative, hypnotic or anxiolytic dependence, uncomplicated; R45.851 Suicidal ideations; F41.9 Anxiety disorder, unspecified; E03.9 Hypothyroidism, unspecified; E11.9 Type 2 diabetes mellitus without complications; E78.00 Pure hypercholesterolemia, unspecified; G47.00 Insomnia, unspecified; E78.5 Hyperlipidemia, unspecified; F43.12 Post-traumatic stress disorder, chronic; F60.3 Borderline personality disorder; G89.4 Chronic pain syndrome; I10 Essential (primary) hypertension; J44.9 Chronic obstructive pulmonary disease, unspecified; K21.9 Gastro-esophageal reflux disease without esophagitis; Z79.4 Long term (current) use of insulin; Z90.710 Acquired absence of both cervix and uterus; Z88.5 Allergy status to narcotic agent; Z79.899 Other long term (current) drug therapy
CPT/HCPCS: 36415; 80061; 82948; 83036; 87070; 94760; 97161; 99285; J1815; Q0177